=== PATIENT | male | born 1980 | race Caucasian/White ===

== ENCOUNTER 2021-08-10 10:53 | Emergency (ER) | payer OTHER ==
[~2021-08-10] VITALS: Ht 175.3 cm; Wt 65.5 kg
[2021-08-10 11:00] VITALS: BP 137/92
--- NOTE | 2021-08-10 11:24 | PHYS DOC ---
General Adult EDM: Chief Complaint: UPPER EXTREMITY PAIN HPI: HPI: 41-year-old male presents with left upper extremity pain. The patient states that the pain is a pretty good tingling sensation of the left upper arm mostly from the elbow to the shoulder. He feels like he has some decreased strength. Denies change in sensation. He has a short fiber neuropathy history. He always has some level of neuropathy in his hands. The patient woke up with this discomfort. He knows that he has degenerative cervical spine. He denies any trauma or falls to the shoulder region. Review of Systems: Review of Systems: Constitutional: Denies fever or chills Eyes: Denies change in visual acuity HENT: Denies nasal congestion or sore throat Respiratory: Denies cough or shortness of breath Cardiovascular: Denies chest pain or edema GI: Denies abdominal pain, nausea, vomiting, bloody stools or diarrhea : Denies dysuria Musculoskeletal: Left upper arm pain Integument: Denies rash Neurologic: Denies headache, focal weakness or sensory changes Endocrine: Denies polyuria or polydipsia Lymphatic: Denies swollen glands Psychiatric: Denies depression or anxiety Physical Exam: PE: Constitutional: Well developed, well nourished, no acute distress, non-toxic appearance. [] HENT: Normocephalic, atraumatic, bilateral external ears normal, oropharynx moist, no oral exudates, nose normal. [] Eyes: PERRLA, EOMI, conjunctiva normal, no discharge. [] Neck: Normal range of motion, no tenderness, supple, no stridor. [] Cardiovascular: Heart rate regular rhythm, no murmur [] Lungs & Thorax: Bilateral breath sounds clear to auscultation [] Abdomen: Bowel sounds normal, soft, no tenderness, no masses, no pulsatile masses. [] Skin: Warm, dry, no erythema, no rash. [] Back: No tenderness, no CVA tenderness. [] Extremities: No pain with empty can, apprehension, or internal rotation. Slow slightly decreased holding strength of the left shoulder compared to right with empty can. [] Neurologic: Alert and oriented X 3, normal motor function, normal sensory function, no focal deficits noted. [] Psychologic: Affect normal, judgement normal, mood normal. [] EKG: EKG: [] Radiology/Procedures: Radiology/Procedures: [] Impressions: Cervical spine radiograph 08/10/2021 11:19 AM INDICATION: Right arm numbness COMPARISON: None available. TECHNIQUE: Lateral, AP and odontoid views of the cervical spine are provided. FINDINGS: The cervical spine is visualized from the craniocervical junction through the cervicothoracic junction. Alignment of the cervical spine is normal. No acute fracture is visualized. Bone mineralization is within normal limits. Mild disc height loss at C6-C7 with marginal osteophytosis. There is no prevertebral soft tissue swelling. Mild facet arthropathy. Mild uncovertebral joint disease. There is no osseous spinal canal stenosis. The lateral masses of C1 articulate appropriately with the C2 vertebral body. IMPRESSION: No acute fracture or malalignment of the cervical spine. Mild cervical spondylosis. Electronically signed by: Dung Blackmon MD (08/10/2021 11:56 AM) [id number] DICTATED AND SIGNED BY: DUNG BLACKMON MD DATE: 08/10/21 1153 CC: BELKIS ABBOTT DO; [employer]- ~MTH0 0 Heart Score: C/O Chest Pain: N/A Risk Factors: Risk Factors: DM, Current or recent (<one month) smoker, HTN, HLP, family history of CAD, obesity. Risk Scores: Score 0 - 3: 2.5% MACE over next 6 weeks - Discharge Home Score 4 - 6: 20.3% MACE over next 6 weeks - Admit for Clinical Observation Score 7 - 10: 72.7% MACE over next 6 weeks - Early Invasive Strategies Course & Med Decision Making: Course & Med Decision Making Pertinent Labs and Imaging studies reviewed. (See chart for details) Patient cervical x-ray is negative for acute findings. He does have some degenerative change at C6-7. I will trial the patient on 5 days of prednisone to see if this helps with his symptoms. He will follow up with neurosurgery as appropriate to discuss MRI for further evaluation and discussion of treatment options. He is stable for discharge at this time. [] Dragon Disclaimer: Dragon Disclaimer: This electronic medical record was generated, in whole or in part, using a voice recognition dictation system. Departure Departure: Impression: Primary Impression: Left upper extremity numbness Additional Impression: Degenerative disc disease, cervical Disposition: HOME / SELF CARE / HOMELESS Condition: STABLE Referrals: SHANNEN GRAY-BETH (PCP) Patient Instructions: Degenerative Disk Disease Scripts Prednisone (PREDNISONE) 50 Mg Tablet 1 TAB PO DAILY for cervical radiculopathy, #5 TAB Prov: BELKIS ABBOTT DO 08/10/21 BELKIS ABBOTT DO Aug 10, 2021 11:24
--- NOTE | 2021-08-10 11:59 | RAD ---
Cervical spine radiograph 08/10/2021 11:19 AM INDICATION: Right arm numbness COMPARISON: None available. TECHNIQUE: Lateral, AP and odontoid views of the cervical spine are provided. FINDINGS: The cervical spine is visualized from the craniocervical junction through the cervicothoracic junctio n. Alignment of the cervical spine is normal. No acute fracture is visualized. Bone mineralization is within normal limits. Mild disc height loss at C6-C7 with marginal osteophytosis. There is no prever tebral soft tissue swelling. Mild facet arthropathy. Mild uncovertebral joint disease. There is no os seous spinal canal stenosis. The lateral masses of C1 articulate appropriately with the C2 vertebral body. IMPRESSION: No acute fracture or malalignment of the cervical spine. Mild cervical spondylosis. Electronically signed by: Yue Blackmon MD (08/10/2021 11:56 AM) [id number]
[2021-08-10] MEDS ORDERED: PRED50TA PO (12:13)
== END 2021-08-10 12:45 | disposition home or self-care (01) ==
LOC: ER 10:53
DX: M50.323 Other cervical disc degeneration at C6-C7 level (principal)
CPT/HCPCS: 72040; 99283